=== PATIENT | female | born 1985 | race Caucasian/White ===

== ENCOUNTER 2016-09-14 09:56 | Emergency (ER) | payer MEDICAID ==
[2016-09-14 10:16] VITALS: BP 119/89; TEMP 97.2
[2016-09-14] MEDS ORDERED: IPRATROPIUM/ALBUTEROL 3 ML DEYVIAL IH ONE (10:36)
[2016-09-14] MEDS ORDERED: predniSONE 20 MG TAB PO ONE (10:36)
--- NOTE | 2016-09-14 10:36 | UCPHY ---
H & P Time Seen by Provider: 09/14/16 10:21 Patient Type: Established HPI/ROS: Chief complaint. Shortness of breath HPI. 31-year-old female gradually worsening shortness of breath for the past 2 weeks. She has a history of asthma. She has gone through an run out of her inhaler. She has a cough productive clear sputum. No fever. Symptoms are worse at night and with exertion. She has also had diarrhea for the past several weeks. No chest discomfort. She does have some chest tightness when the wheezing seems to be bad ROS Constitutional. no fever/chills, no weakness Eyes. no problems with vision ENT. no sore throat, no nasal drainage Cardiovascular. Chest tightness Respiratory. Shortness of breath and cough Abdominal. Diarrhea . no problems urinating MS. no calf pain/swelling, no neck/back pain, no joint pain Skin. no rash Lymph. no swollen glands Neuro. 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 ENT, Mouth: Mucous membranes are moist. Respiratory: No retractions but diffuse inspiratory expiratory wheezing Cardiovascular: Regular rate and rhythm. Gastrointestinal: Abdomen is soft and nontender, no masses, bowel sounds normal. Neurological: Awake and alert, sensory and motor exams grossly normal. Skin: Warm and dry, no rashes. Musculoskeletal: Neck is supple nontender. Extremities symmetrical, full range of motion. Psychiatric: Patient is oriented X 3, there is no agitation. Constitutional: Initial Vital Signs Temperature (C) 36.2 C 09/14/16 10:14 Heart Rate 96 09/14/16 10:14 Respiratory Rate 18 09/14/16 10:14 Blood Pressure 119/89 H 09/14/16 10:14 O2 Sat (%) 97 09/14/16 10:14 O2 Delivery Mode Room Air Allergies/Adverse Reactions: cefaclor [From On [facility] Of [facility]] Allergy (Verified 09/14/16 10:13) Penicillins Allergy (Verified 09/14/16 10:13) Home Medications: Medication Instructions Recorded Seroquel 07/07/15 Zyprexa 07/07/15 Albuterol Hfa Anes Only [Proair 2 puffs IH QID PRN #1 mdi 09/14/16 Hfa Icu (*)] predniSONE 40 mg PO DAILY #8 tablet 09/14/16 Medical Decision Making Procedures: DuoNeb updraft. Prednisone 60 mg orally ED Course/Re-evaluation: Re-evaluation after her DuoNeb treatment. Better air movement with louder wheezing. Patient is still conversation dull and speaking in full sentences. albuterol updraft--much better air movement after the 2nd updraft. Still some residual wheezing. Patient is feeling better Albuterol updraft again--re-evaluation 12:10 p.m.. Again better air movement and only slight residual wheezing. No tachypnea, accessory muscle use. Speaks in full sentences. The patient, her mom, and I discussed treatment plan including criteria for return importance of follow-up and further evaluation. They expressed understanding and agreement Differential Diagnosis: I considered asthma exacerbation, COPD, pneumonia. Patient is also having diarrhea which may be part of a viral syndrome. - Data Points Medications Given: Discontinued Medications Albuterol (Proventil Neb) 3 ml IH EDNOW ONE Stop: 09/14/16 11:13 Last Admin: 09/14/16 11:24 Dose: 3 ml Albuterol (Proventil Neb) 3 ml IH EDNOW ONE Stop: 09/14/16 11:43 Last Admin: 09/14/16 11:49 Dose: 3 ml Albuterol/Ipratropium (Duoneb) 3 ml IH EDNOW ONE Stop: 09/14/16 10:37 Last Admin: 09/14/16 10:50 Dose: 3 ml Prednisone (Prednisone) 60 mg PO EDNOW ONE Stop: 09/14/16 10:37 Last Admin: 09/14/16 10:47 Dose: 60 mg Departure - Departure Disposition: Home, Routine, Self-Care Clinical Impression: Asthma exacerbation Condition: Good Instructions: Bronchospasm (ED), Loperamide (By mouth) Additional Instructions: Albuterol inhaler using 2 puffs every 4-6 hours especially for the next 2 days quite regularly and then as needed. Prednisone each day for the next 4 days as we gave your 1st dose today. Return for worsening symptoms. Recheck in 2 days if not improved. Imodium (loperamide) as needed for diarrhea Referrals: NONE *PRIMARY CARE P,. [Primary Care Provider] - As per Instructions Sarah Bose MD [Medical Doctor] - 2-3 days, if not improved Prescriptions: Albuterol Hfa Anes Only [Proair Hfa Icu (*)] 2 puffs IH QID PRN #1 mdi PRN Reason: Short Of Breath/Dyspnea predniSONE 40 mg PO DAILY #8 tablet - PQRS PQRS Measurement: 134: Depression screening and followup, PRIME MD-PHQ2 (12 years and older) Over the last 2 weeks, how often have you been bothered by any of the following problems? 1. Feeling down, depressed, or hopeless? 2. Little interest or pleasure in doing things? Patient answered no to both 1 and 2 130: Documentation of medications. Reviewed all patient medications, doses, route and frequency. 226: Do you smoke? No.
[2016-09-14] MEDS ORDERED: ALBUTEROL 3 ML DEYVIAL IH ONE ×2 (11:12→11:42)
[2016-09-14 12:43] VITALS: PULSE 100; RESP 16; O2SAT 94
== END 2016-09-14 12:20 | disposition home or self-care (01) ==
LOC: CED 09:56
DX: J45.901 Unspecified asthma with (acute) exacerbation (principal); Z88.0 Allergy status to penicillin
CPT/HCPCS: 99214-PO; G0463-PO

== ENCOUNTER 2016-10-12 11:03 | Emergency (ER) | payer MEDICAID ==
[2016-10-12 11:18] VITALS: TEMP 97.5
[2016-10-12] MEDS ORDERED: IPRATROPIUM/ALBUTEROL 3 ML DEYVIAL IH ONE (11:43)
--- NOTE | 2016-10-12 12:02 | EDPHY ---
H & P Time Seen by Provider: 10/12/16 11:31 HPI/ROS: This patient complains of wheeze, cough and mild dyspnea. Her symptoms came on over the past 3 days and are consistent with prior asthma exacerbations. She notices mostly at night when she awakens obtain to 4:00 a.m. feeling more wheezing shortness of breath that improves with her albuterol inhaler with spacer. However today for the 1st time she had ongoing shortness of breath and wheezing after awakening in the morning the prompted her visit. She reports the cough is a dry cough and intermittent. She notes no exacerbating factors other than the improvement on albuterol. ROS: No fevers chills or other constitutional symptoms. HEENT: No nasal congestion. No sore throat. Pulmonary: No pleuritic pain. No respiratory distress. Cardiovascular: No lightheadedness. She does report mild chest pain that feels burning and tight to her similar to previous asthma. No leg swelling or pain. GI: No nausea vomiting or belly pain Integumentary: No skin rash. 7 point ROS is otherwise negative Past Medical/Surgical History: Psychiatric Mild asthma-never hospitalized she did have a visit here in September 16 for mild asthma exacerbation improved with albuterol sent out on prednisone with improvement. Social History: The patient does smoke marijuana occasionally. Smoking Status: Never smoked Physical Exam: General Appearance: Alert, no distress. Eyes: Pupils equal and round no pallor or injection. ENT, Mouth: Mucous membranes moist. Nose: Clear with no nasal congestion Respiratory: Moderate biphasic wheezing is present. No rales. No respiratory distress. Cardiovascular: Regular rate and rhythm. No murmur gallop or rub Neurological: GCS 15 Skin: Warm and dry, no rashes. Musculoskeletal: Neck is supple nontender. Extremities are symmetrical, full range of motion. Psychiatric: Patient is oriented X 3, there is no agitation. DIFFERENTIAL DIAGNOSIS: After history and physical exam differential diagnosis was considered for asthma exacerbation, viral URI with cough Constitutional: Initial Vital Signs Temperature (C) 36.4 C 10/12/16 11:05 Heart Rate 88 10/12/16 11:05 Respiratory Rate 16 10/12/16 11:05 Blood Pressure 123/93 H 10/12/16 11:05 O2 Sat (%) 95 10/12/16 11:05 O2 Delivery Mode Room Air Allergies/Adverse Reactions: cefaclor [From [facility]] Allergy (Verified 10/12/16 11:15) Penicillins Allergy (Verified 10/12/16 11:15) Home Medications: Medication Instructions Recorded Seroquel 07/07/15 Zyprexa 07/07/15 Albuterol Hfa Anes Only [Proair 2 puffs IH QID PRN #1 mdi 09/14/16 Hfa Icu (*)] predniSONE 40 mg PO DAILY #8 tablet 09/14/16 Albuterol Hfa Anes Only [Proair 2 puffs IH Q4 PRN #1 mdi 10/12/16 Hfa Icu (*)] Fluticasone Hfa 220 Mcg [Flovent 2 puffs IH DAILY #1 mdi 10/12/16 220 MCG Hfa MDI (*)] predniSONE 40 mg PO DAILY #8 tab 10/12/16 MDM/Departure - MDM Medications Given: Discontinued Medications Albuterol (Proventil Neb) 3 ml IH EDNOW ONE Stop: 10/12/16 12:12 Last Admin: 10/12/16 12:20 Dose: 3 ml Albuterol/Ipratropium (Duoneb) 3 ml IH EDNOW ONE Stop: 10/12/16 11:44 Last Admin: 10/12/16 11:45 Dose: 3 ml Prednisone (Prednisone) 60 mg PO EDNOW ONE Stop: 10/12/16 12:09 Last Admin: 10/12/16 12:16 Dose: 60 mg ED Course/Re-evaluation: DuoNeb followed by albuterol neb with increased aeration decreased wheeze and subjective improvement. She is treated with 60 0 mg of prednisone in addition. I spoke with her about inhaled steroid to use after she finished the prednisone if she has any lingering symptoms or for future early exacerbations. She understands the plan and feels comfortable time of discharge. Find no evidence of lower respiratory infection or other complicating factors in this patient responded well to treatment for her [id number] asthma exacerbation. - Depart Disposition: Home, Routine, Self-Care Clinical Impression: Asthma exacerbation Condition: Good Instructions: Asthma (ED) Additional Instructions: Diagnosis: Asthma exacerbation Plan: Albuterol inhaler with spacer for cough, wheeze or shortness of breath Prednisone in addition as prescribed. He self lingering wheezing after he finished the prednisone, then start the Flovent steroid inhaler intake in addition to the albuterol. Otherwise, hold the Flovent until you have any recurrence of asthma symptoms in the future and start using the Flovent daily and continue for 10-14 days until your symptoms improved. Follow up with primary care physician for any ongoing symptoms despite the treatment plan Return for any significant worsening despite the treatment plan. Prescriptions: Albuterol Hfa Anes Only [Proair Hfa Icu (*)] 2 puffs IH Q4 PRN #1 mdi PRN Reason: Wheezing Fluticasone Hfa 220 Mcg [Flovent 220 MCG Hfa MDI (*)] 2 puffs IH DAILY #1 mdi predniSONE 40 mg PO DAILY #8 tab Referrals: Sarah Bose MD [Primary Care Provider] - As per Instructions
[2016-10-12] MEDS ORDERED: predniSONE 20 MG TAB PO ONE (12:08)
[2016-10-12] MEDS ORDERED: ALBUTEROL 3 ML DEYVIAL IH ONE (12:11)
[2016-10-12 12:59] VITALS: BP 128/91; PULSE 96; RESP 20; O2SAT 94
== END 2016-10-12 12:58 | disposition home or self-care (01) ==
LOC: CED 11:03
DX: J45.901 Unspecified asthma with (acute) exacerbation (principal)

== ENCOUNTER 2017-03-03 12:46 | Emergency (ER) | payer MEDICAID, OTHER ==
[2017-03-03] MEDS ORDERED: IPRATROPIUM/ALBUTEROL 3 ML DEYVIAL IH ONE (12:57)
[2017-03-03] MEDS ORDERED: ONDANSETRON 4 MG/2 ML VIAL IVP ONE (13:13)
[2017-03-03] MEDS ORDERED: NS 1,000 ML IV ONE (13:13)
--- NOTE | 2017-03-03 13:13 | EDPHY ---
H & P Time Seen by Provider: 03/03/17 13:03 HPI/ROS: CHIEF COMPLAINT: Nausea, vomiting, cough HISTORY OF PRESENT ILLNESS: Patient is a 31-year-old female with a history of bipolar disorder and asthma who presents emergency department with multiple complaints. Patient states that last night she developed nausea with multiple episodes of nonbloody emesis. She has no abdominal pain. No fever but mild chills. The patient has had an increasing cough since last night. She feels as though inhalers are not working. She describes mild sore throat that is diffuse. The triage note states the patient has chest pain. However, the patient states that she has mild chest discomfort when she coughs. No chest pain at rest. No leg pain or swelling REVIEW OF SYSTEMS: My complete review of systems is negative except as mentioned in the HPI. Past Medical/Surgical History: Includes bipolar disorder, asthma, coarctation of the aorta Past surgical history: Coarctation repair Social history: The patient does not smoke tobacco. She smokes marijuana. Smoking Status: Never smoked Physical Exam: 37.0, 129/96, 107, 18, 93% on room air GENERAL: Well-appearing, in no acute distress, alert. HEENT: Eyes normal to inspection, normal pharynx, no signs of dehydration. NECK: No thyromegaly, no lymphadenopathy, supple. RESPIRATORY: The scattered wheezing. No respiratory distress. No accessory muscle use. No rales or rhonchi. CVS: Regular rate and rhythm, no rubs, murmurs, or gallops. ABDOMEN: Soft, nontender, nondistended, no organomegaly. Benign BACK: Normal to inspection, no CVA tenderness. SKIN: Normal color, no rash, warm, dry. No pallor. EXTREMITIES: No pedal edema, no calf tenderness, no Homans sign or cords, no joint swelling. NEURO/PSYCH: Alert and oriented x3, normal mood and affect, normal motor sensory exam. Constitutional: Initial Vital Signs Temperature (C) 37.0 C 03/03/17 12:55 Heart Rate 107 H 03/03/17 12:55 Respiratory Rate 18 03/03/17 12:55 Blood Pressure 129/96 H 03/03/17 12:55 O2 Sat (%) 93 03/03/17 12:55 O2 Delivery Mode Room Air Allergies/Adverse Reactions: cefaclor [From [facility]] Allergy (Verified 03/03/17 12:55) Penicillins Allergy (Verified 03/03/17 12:55) Home Medications: Medication Instructions Recorded Seroquel 07/07/15 Zyprexa 07/07/15 Albuterol Hfa Anes Only [Proair 2 puffs IH Q4 PRN #1 mdi 10/12/16 Hfa Icu (*)] Fluticasone Hfa 220 Mcg [Flovent 2 puffs IH DAILY #1 mdi 10/12/16 220 MCG Hfa MDI (*)] Albuterol Sulfate [Proair Hfa] 8.5 gm IH Q4 #1 hfa.aer.ad 03/03/17 Ondansetron Odt [Zofran Odt 4 mg 4 mg PO Q4PRN PRN #7 tab 03/03/17 (*)] predniSONE 20 mg PO DAILY 4 Days tab 03/03/17 Medical Decision Making - Diagnostics Imaging Results: Imaging Impressions Chest X-Ray 03/03/17 13:13 IMPRESSION: No evidence for acute cardiopulmonary abnormality. ED Course/Re-evaluation: In the emergency department I discussed possible etiologies with the patient. I answered all her questions. IV was placed. The patient was given normal saline for hydration. She is given Zofran 4 mg IV for nausea. Laboratories, chest x-ray and swab were ordered. Chest x-ray: No acute disease noted. Please refer the dictated report by Dr. James. Nursing staff had difficulty obtaining IV access. Repeat attempt was performed. I reviewed the patient's laboratory studies. Patient has a mildly elevated gap and mildly low CO2. The CBC was normal. Patient is not anemic. Strep screen was negative. I discussed the results with the patient. I answered all her questions. She states she was feeling much better. She still had mild scattered wheezing. Her abdomen was soft, nontender nondistended. Patient feels comfortable with discharge home. Patient states she is running low on her inhalers. She was given both Flovent and ProAir which are previous inhalers. She was also given a prescription for Zofran and prednisone. She is given warnings prior to leaving. She will return with worsening symptoms. Differential Diagnosis: My differential includes but is not limited to viral illness, GERD, pancreatitis , cholecystitis, pneumonia, bronchitis, asthma exacerbation, pharyngitis - Data Points Laboratory Results: Laboratory Results 03/03/17 13:59 03/03/17 13:59 03/03/17 03/03/17 03/03/17 Unknown 13:59 13:59 WBC RBC Hgb Hct MCV MCH MCHC RDW Plt Count MPV Neut % (Auto) Lymph % (Auto) Milam % (Auto) Eos % (Auto) Baso % (Auto) Nucleat RBC Rel Count Absolute Neuts (auto) Absolute Lymphs (auto) Absolute Monos (auto) Absolute Eos (auto) Absolute Basos (auto) Absolute Nucleated RBC Immature Gran % Immature Gran # PT INR APTT Sodium Potassium Chloride Carbon Dioxide Anion Gap BUN Creatinine Estimated GFR Glucose Calcium Total Bilirubin Conjugated Bilirubin Unconjugated Bilirubin AST ALT Alkaline Phosphatase Total Protein Albumin Lipase Beta HCG, Qual NEGATIVE Group A Strep Screen NEGATIVE (NEGATIVE) Group A Strep DNA Pending 03/03/17 03/03/17 03/03/17 13:59 13:59 13:12 WBC 4.01 10^3/uL 10^3/uL (3.80-9.50) RBC 5.90 10^6/uL H 10^6/uL (4.18-5.33) Hgb 15.9 g/dL g/dL (12.6-16.3) Hct 47.9 % H % (38.0-47.0) MCV 81.2 fL L fL (81.5-99.8) MCH 26.9 pg L pg (27.9-34.1) MCHC 33.2 g/dL g/dL (32.4-36.7) RDW 13.3 % % (11.5-15.2) Plt Count 243 10^3/uL 10^3/uL (150-400) MPV 9.3 fL fL (8.7-11.7) Neut % (Auto) 70.3 % % (39.3-74.2) Lymph % (Auto) 16.5 % % (15.0-45.0) Milam % (Auto) 11.0 % % (4.5-13.0) Eos % (Auto) 2.0 % % (0.6-7.6) Baso % (Auto) 0.0 % L % (0.3-1.7) Nucleat RBC Rel Count 0.0 % % (0.0-0.2) Absolute Neuts (auto) 2.82 10^3/uL 10^3/uL (1.70-6.50) Absolute Lymphs (auto) 0.66 10^3/uL L 10^3/uL (1.00-3.00) Absolute Monos (auto) 0.44 10^3/uL 10^3/uL (0.30-0.80) Absolute Eos (auto) 0.08 10^3/uL 10^3/uL (0.03-0.40) Absolute Basos (auto) 0.00 10^3/uL L 10^3/uL (0.02-0.10) Absolute Nucleated RBC 0.00 10^3/uL 10^3/uL (0-0.01) Immature Gran % 0.2 % % (0.0-1.1) Immature Gran # 0.01 10^3/uL 10^3/uL (0.00-0.10) PT 14.1 SEC SEC (12.0-15.0) INR 1.12 (0.83-1.16) APTT 28.7 SEC SEC (23.0-38.0) Sodium 143 mEq/L mEq/L (134-144) Potassium 3.9 mEq/L mEq/L (3.5-5.2) Chloride 104 mEq/L mEq/L (97-110) Carbon Dioxide 20 mEq/l L mEq/l (22-31) Anion Gap 19 mEq/L H mEq/L (8-16) BUN 10 mg/dL mg/dL (7-23) Creatinine 1.0 mg/dL mg/dL (0.6-1.0) Estimated GFR > 60 Glucose 102 mg/dL H mg/dL (70-100) Calcium 10.1 mg/dL mg/dL (8.5-10.4) Total Bilirubin 0.7 mg/dL mg/dL (0.1-1.4) Conjugated Bilirubin 0.6 mg/dL H mg/dL (0.0-0.5) Unconjugated Bilirubin 0.1 mg/dL mg/dL (0.0-1.1) AST 19 IU/L IU/L (14-46) ALT 26 IU/L IU/L (9-52) Alkaline Phosphatase 79 IU/L IU/L (38-126) Total Protein 8.1 g/dL g/dL (6.3-8.2) Albumin 5.1 g/dL H g/dL (3.5-5.0) Lipase 71 IU/L IU/L (23-300) Beta HCG, Qual Group A Strep Screen Group A Strep DNA Medications Given: Discontinued Medications Albuterol/Ipratropium (Duoneb) 3 ml IH EDNOW ONE Stop: 03/03/17 12:58 Last Admin: 03/03/17 13:10 Dose: 3 ml Sodium Chloride (Ns) 1,000 mls @ 0 mls/hr IV EDNOW ONE; Wide Open PRN Reason: Protocol Stop: 03/03/17 13:14 Last Admin: 03/03/17 13:57 Dose: 1,000 mls Methylprednisolone Sodium Succinate (Solu-Medrol) 125 mg IVP EDNOW ONE Stop: 03/03/17 13:23 Last Admin: 03/03/17 14:03 Dose: 125 mg Ondansetron HCl (Zofran) 4 mg IVP EDNOW ONE Stop: 03/03/17 13:14 Last Admin: 03/03/17 13:58 Dose: 4 mg Departure - Departure Disposition: Home, Routine, Self-Care Clinical Impression: Asthma exacerbation Qualifiers: Asthma severity: moderate Asthma persistence: unspecified Qualified Code(s): J45.901 - Unspecified asthma with (acute) exacerbation Vomiting Qualifiers: Vomiting type: unspecified Vomiting Intractability: non-intractable Nausea presence: with nausea Qualified Code(s): R11.2 - Nausea with vomiting, unspecified Pharyngitis Qualifiers: Pharyngitis/tonsillitis etiology: unspecified etiology Qualified Code(s): J02.9 - Acute pharyngitis, unspecified Condition: Good Instructions: Acute Nausea and Vomiting (ED), Asthma (ED), Pharyngitis (ED) Additional Instructions: Return with increasing shortness of breath, sore throat, cough, abdominal pain, repeated vomiting or any other concerns. Referrals: Sarah Bose MD [Primary Care Provider] - 2-3 days, call for appt. Prescriptions: Albuterol Sulfate [Proair Hfa] 8.5 gm IH Q4 #1 hfa.aer.ad Ondansetron Odt [Zofran Odt 4 mg (*)] 4 mg PO Q4PRN PRN #7 tab PRN Reason: For Nausea & Vomiting predniSONE 20 mg PO DAILY 4 Days tab
[2017-03-03] MEDS ORDERED: methylPREDNISolone SOD SUCC 125 MG/2 ML VIAL IVP ONE (13:22)
[2017-03-03 14:02] LABS: % IMMATURE GRANULYOCYTES 0.2 % (0.0-1.1); ABSOLUTE IMMATURE GRANULOCYTES 0.01 10^3/uL (0.00-0.10); ADD DIFF? NO; ADD MORPH? NO; ADD SCAN? NO; ATYPICAL LYMPHOCYTE FLAG 10 (0-99); FRAGMENT RBC FLAG 0 (0-99); HEMATOCRIT 47.9 % (38.0-47.0); HEMOGLOBIN 15.9 g/dL (12.6-16.3); LEFT SHIFT FLG 0 (0-99); LIPEMIA HEMOLYSIS FLAG 80 (0-99); MEAN CELL HEMOGLOBIN 26.9 pg (27.9-34.1); MEAN CELL HEMOGLOBIN CONCENTR. 33.2 g/dL (32.4-36.7); MEAN CELL VOLUME 81.2 fL (81.5-99.8); MEAN PLATELET VOLUME 9.3 fL (8.7-11.7); PLATELET CLUMPS FLAG 0 (0-99); PLATELET COUNT 243 10^3/uL (150-400); RED CELL DISTRIBUTION WIDTH 13.3 % (11.5-15.2)
[2017-03-03 14:22] LABS: INR 1.12 (0.83-1.16); PROTIME(PATIENT) 14.1 SEC (12.0-15.0)
[2017-03-03 14:23] LABS: APTT 28.7 SEC (23.0-38.0)
[2017-03-03 14:26] LABS: ALANINE AMINOTRANSFERASE 26 IU/L (9-52); ALBUMIN 5.1 g/dL (3.5-5.0); ALKALINE PHOSPHATASE 79 IU/L (38-126); ANION GAP 19 mEq/L (8-16); ASPARTATE AMINOTRANSFERASE 19 IU/L (14-46); BILIRUBIN,TOTAL 0.7 mg/dL (0.1-1.4); BILIRUBIN-CONJUGATED 0.6 mg/dL (0.0-0.5); BILIRUBIN-UNCONJUGATED 0.1 mg/dL (0.0-1.1); CALCIUM 10.1 mg/dL (8.5-10.4); CARBON DIOXIDE 20 mEq/l (22-31); CHLORIDE 104 mEq/L (97-110); GLOMERULAR FILTRATION RATE > 60; GLUCOSE 102 mg/dL (70-100); POTASSIUM 3.9 mEq/L (3.5-5.2); SODIUM 143 mEq/L (134-144); TOTAL PROTEIN 8.1 g/dL (6.3-8.2)
[2017-03-03 14:56] VITALS: BP 109/74; PULSE 94; RESP 18; TEMP 98.4; O2SAT 95
== END 2017-03-03 14:56 | disposition home or self-care (01) ==
LOC: CED 12:46
DX: J45.901 Unspecified asthma with (acute) exacerbation (principal); J02.9 Acute pharyngitis, unspecified; R11.2 Nausea with vomiting, unspecified
CPT/HCPCS: 71020; 96361; 96374; 96375; 99284; J2405; 80048-PO; 80076-PO; 83690-PO; 84703-PO; 85025-PO; 85610-PO; 85730-PO; 87880-PO